=== PATIENT | male | born 2000 | race Caucasian/White ===

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

== ENCOUNTER 2022-05-07 01:58 | Day surgery (SDC) | payer OTHER ==
[~2022-05-07] VITALS: Ht 188 cm; Wt 75.0 kg
[2022-05-07] MEDS ORDERED: ACETAMINOPHEN TAB 650MG DOSE (2X325MG) PO ONE (02:50)
[2022-05-07 02:51] LABS: BASO % 0.2 % (0.0-1.0); EOS % 0.1 % (0.0-3.0); HEMATOCRIT 38.8 % (42.0-52.0); HEMOGLOBIN 13.5 g/dl (13.5-17.5); LYMPH # 1.1 10^3/uL (1.5-5.0); LYMPH % 7.1 % (24.0-44.0); MEAN CORPUSCULAR HEMOGLOBIN 31.3 pg (27.0-33.0); MEAN CORPUSCULAR HGB CONC 34.8 g/dl (32.0-36.5); MONO % 6.4 % (2.0-8.0); NEUTROPHILS % 85.8 % (36.0-66.0); PLATELET COUNT, AUTOMATED 236 10^3/uL (150-450); RED BLOOD COUNT 4.31 10^6/uL (4.30-6.10); WHITE BLOOD COUNT 15.1 10^3/uL (4.0-10.0)
[2022-05-07 03:01] LABS: INR 0.99; PROTHROMBIN TIME 13.3 SECONDS (12.5-14.5)
[2022-05-07] MEDS: GASTROGRAFIN SOLUTION 30ML PO SCH ×2 (03:20→04:50)
[2022-05-07 03:27] LABS: RSV AMPLIFICATION NEGATIVE (NEGATIVE)
[2022-05-07 03:35] LABS: ALBUMIN 4.3 GM/DL (3.2-5.2); ALT/SGPT 29 U/L (12-78); AMYLASE 75 U/L (25-115); BILIRUBIN,DIRECT 0.4 MG/DL (0.0-0.2); BILIRUBIN,TOTAL 1.6 MG/DL (0.2-1.0); BLOOD UREA NITROGEN 21 MG/DL (7-18); CALCIUM LEVEL 9.4 MG/DL (8.5-10.1); CARBON DIOXIDE LEVEL 29 MEQ/L (21-32); CHLORIDE LEVEL 103 MEQ/L (98-107); CREATININE FOR GFR 0.94 MG/DL (0.70-1.30); GLUCOSE, FASTING 112 MG/DL (70-100); LIPASE 79 U/L (73-393); POTASSIUM SERUM 3.6 MEQ/L (3.5-5.1); SODIUM LEVEL 137 MEQ/L (136-145); TOTAL PROTEIN 7.4 GM/DL (6.4-8.2)
[2022-05-07] MEDS ORDERED: ISOVUE-370 76% 100ML VIAL As Ordered ONE (04:10)
[2022-05-07] MEDS ORDERED: GASTROGRAFIN SOLUTION 30ML (Q9963) As Ordered ONE (04:24)
[2022-05-07] MEDS ORDERED: PIPERACILLIN/TAZOBACTAM SOD 3.375 GM in D5W MINI-BAG PLUS 50 ML IV ONE (08:20)
[2022-05-07] MEDS ORDERED: CITA20TA7 PO (08:52)
[2022-05-07] MEDS ORDERED: ACET-897 PO (08:52)
[2022-05-07] MEDS ORDERED: HOME MED LIST COMPLETE! XX SCH (08:55)
[2022-05-07] MEDS ORDERED: ROCURONIUM BROMIDE 50 MG/5 ML VIAL As Ordered ONE ×2 (17:36→18:47)
[2022-05-07] MEDS ORDERED: AUGM500T34 PO (18:18)
[2022-05-07] MEDS ORDERED: OXYC1TAB23 PO (18:19)
[2022-05-07] MEDS ORDERED: LIDOCAINE 1% SDV 30ML VIAL As Ordered ONE (18:39)
[2022-05-07] MEDS ORDERED: BUPIVACAINE HCL 0.25% 30ML VIAL As Ordered ONE (18:39)
[2022-05-07] MEDS ORDERED: propofoL 200 MG/20 ML VIAL As Ordered ONE ×2 (18:47→20:06)
[2022-05-07] MEDS ORDERED: dexameTHASONE 4 MG/ML 1ML VIAL (J1100 PER 1MG) As Ordered ONE (18:48)
[2022-05-07] MEDS ORDERED: fentaNYL 250 MCG/5 ML INJECTION As Ordered ONE (18:48)
[2022-05-07] MEDS ORDERED: ONDANSETRON 4MG 2ML VIAL As Ordered ONE (18:48)
[2022-05-07] MEDS ORDERED: MIDAZOLAM INJ 2MG/2ML VIAL (J2250 PER 1MG) As Ordered ONE (18:48)
[2022-05-07] MEDS ORDERED: ZOSYN 3.375GM VIAL As Ordered ONE (19:05)
[2022-05-07] MEDS ORDERED: SUGAMMADEX SODIUM 500 MG/5 ML VIAL (BRIDION) As Ordered ONE (20:07)
[2022-05-07] MEDS ORDERED: KETOROLAC 60MG 2ML VIAL As Ordered ONE (20:08)
[2022-05-07] MEDS ORDERED: ACETAMINOPHEN 1000MG 100ML IV BTL (OFIRMEV) (J0131 PER 10MG) As Ordered ONE (20:15)
[2022-05-07] MEDS ORDERED: LR 1,000 ML IV SCH (20:20)
[2022-05-07] MEDS ORDERED: HYDROMORPHONE HCL 0.5 MG/ 0.5 ML SYRINGE (J1170 PER 1) IV PRN (20:20)
[2022-05-07] MEDS ORDERED: ONDANSETRON 4MG 2ML VIAL IV PRN (20:20)
[2022-05-07] MEDS ORDERED: METOCLOPRAMIDE INJ 10MG/2ML VIAL (J2765 PER 1) IV PRN (20:20)
[2022-05-07] MEDS ORDERED: fentaNYL 100 MCG/2 ML INJECTION IV PRN (20:20)
[2022-05-07 21:30] VITALS: BP 111/57
== END 2022-05-07 22:03 | disposition home or self-care (01) ==
LOC: M ED 01:58 → M SDC 01:59
PROVIDERS: ATTEND Surgery
DX: K35.890 Other acute appendicitis without perforation or gangrene (principal); Z79.899 Other long term (current) drug therapy
CPT/HCPCS: 44970; 80048; 80076; 81002; 82150; 83605; 83690; 85025; 85610; 87040; 87631; 88304; 93041; 96365; 99285; J0131; J1100; J1885; J2250; J2405; J2543; J3010; Q9967

== ENCOUNTER → 2022-10-14 | Outpatient (CLI) | payer OTHER ==
[~2022-10-14] MED LIST: ACET-897 PO; AUGM500T34 PO; CITA20TA7 PO; OXYC1TAB23 PO
== END ==
LOC: M WUC 10:54
PROVIDERS: ATTEND Physician Assistant
DX: M41.35 Thoracogenic scoliosis, thoracolumbar region (principal)